=== PATIENT | female | born 1990 | race Caucasian/White ===

== ENCOUNTER → 2016-10-20 | Outpatient (CLI) | payer OTHER ==
--- NOTE | 2016-10-20 23:26 | REP ---
Clinical: Anatomical evaluation. Comparison: None . Findings: Examination demonstrates a single live intrauterine in breech presentation. motion is identified by technologist. Placenta is noted anteriorly and grade zero without evidence for placenta previa or abruption. Amniotic fluid volume is normal. Cervix measures 4.2 cm in length and appears closed. No evidence for nuchal cord. Gestational age by current measurements 20 weeks 0 days with OSVALDO 03/09/2017 . FHR equals 126 beats per minute. BPD 4.7 20 weeks 1 day HC 17.5 20 weeks 0 days AC 15.4 20 weeks 4 days FL 3.2 22 weeks 0 days HL 3.3 21 weeks 2 days HC/AC ratio 1.14 Estimated weight 345 grams ( 60th percentile). Anatomical assessment demonstrates normal structures including cranium, choroid plexus, cavum, cerebellum/posterior fossa, facial features, lungs, four-chamber heart/ventricular outflow tracts, diaphragm, stomach, cord insertion/three-vessel cord, kidneys/bladder, spine, and extremities. Impression: Single live intrauterine in breech presentation demonstrating normal complete anatomical assessment. Signed by Darren Licea MD 10/20/2016 11:18 P
== END ==
LOC: M SMT 12:58
PROVIDERS: ATTEND Obstetrics & Gynecology
DX: Z34.82 Encounter for supervision of other normal pregnancy, second trimester (principal)

== ENCOUNTER → 2016-12-16 | Outpatient (CLI) | payer OTHER ==
[2016-12-16 17:21] LABS: BASO % 0.1 % (0.0-1.0); EOS # 0.1 K/mm3 (0.0-0.50); EOS % 0.8 % (0.0-3.0); LARGE UNSTAINED CELL # 0.1 K/mm3 (0.0-0.4); LARGE UNSTAINED CELL % 1.1 % (0.0-4.0); LYMPH # 1.5 K/mm3 (1.5-6.5); LYMPH % 12.7 % (24.0-44.0); MEAN CORPUSCULAR HEMOGLOBIN 29.9 pg (27.0-33.0); MEAN CORPUSCULAR HGB CONC 33.3 g/dl (32.0-36.5); MEAN CORPUSCULAR VOLUME 89.7 fl (80.0-96.0); MONO # 0.5 K/mm3 (0.0-0.8); MONO % 4.7 % (0.0-5.0); NEUTROPHILS # 8.9 K/mm3 (1.8-7.7); NEUTROPHILS % 80.7 % (36.0-66.0); PLATELET COUNT, AUTOMATED 239 k/mm3 (150-450); RED CELL DISTRIBUTION WIDTH 13.3 % (11.5-14.5); WHITE BLOOD COUNT 11.1 K/mm3 (4.0-10.0)
== END ==
LOC: M SMT 14:10
PROVIDERS: ATTEND Specialist
DX: Z36 Encounter for antenatal screening of mother (principal); Z3A.00 Weeks of gestation of pregnancy not specified

== ENCOUNTER → 2017-02-09 | Outpatient (REF) | payer OTHER | LOC: M LAB REF 13:06 | PROVIDERS: ATTEND Advanced Practice Midwife | DX: Z36 Encounter for antenatal screening of mother (principal); Z3A.00 Weeks of gestation of pregnancy not specified ==

== ENCOUNTER 2017-03-05 12:45 | Inpatient (IN) | payer OTHER ==
[2017-03-05 13:05] VITALS: BP 132/75
[2017-03-05] MEDS ORDERED: LACTATED RINGER'S 1000 ML IV STA (13:18)
[2017-03-05] MEDS ORDERED: OXYTOCIN 30 UNITS IN 0.9% NaCl 500ML IV BAG (J2590) As Ordered ONE ×2 (13:34→16:19)
[2017-03-05 13:46] LABS: MEAN CORPUSCULAR HEMOGLOBIN 27.2 pg (27.0-33.0); MEAN CORPUSCULAR HGB CONC 33.5 g/dl (32.0-36.5); MEAN CORPUSCULAR VOLUME 81.1 fl (80.0-96.0); RED CELL DISTRIBUTION WIDTH 14.3 % (11.5-14.5); WHITE BLOOD COUNT 20.5 K/mm3 (4.0-10.0)
--- NOTE | 2017-03-05 13:51 | HPE ---
DATE OF ADMISSION: 03/05/2017 Ngoc is a 27-year-old 1, para 0 at 38 and 5/7 weeks gestation with an EDC of 03/14/2017 based on last normal period and confirmed by first trimester ultrasound. She presents to labor and delivery today with report of onset of uncomfortable contractions at approximately 0700 followed by a spontaneous rupture of membranes for a moderate amount of clear fluid at 0900. She does report positive bloody show and continued leaking. Her fetus has been active. The contractions are now extremely uncomfortable and difficult to cope with. She initiated her care at [facility] in the second trimester. Her care has been complicated by a history of vesicoureteral reflux as a child and she is status post revision via Pfannenstiel incision. OBSTETRICAL HISTORY: [facility] LABS: Her blood type is A+, antibody screen negative. Rubella immune. VDRL nonreactive. Urine culture no growth. Hepatitis B surface antigen negative. HIV negative. Hepatitis C antibody negative. Gonorrhea and chlamydia negative. Gestational diabetic screening 94 and GBS is negative. PAST MEDICAL HISTORY: Vesicoureteral reflux in, Childhood varicella. SURGERIES: Ureteral reimplantation for vesical reflux via Pfannenstiel incision. FAMILY HISTORY: Asthma. SOCIAL HISTORY: The patient is . The is at bedside and supportive. She is a nonsmoker. Denies alcohol and drug use. Denies history of STDs. Denies history of abuse physical, sexual and emotional. ALLERGIES: No known drug allergies. CURRENT MEDICATIONS: vitamin. OBJECTIVE: Pulse 71, blood pressure 132/75. She is whimpering and tensing with her contractions. She is alert and oriented times three. heart rate is 110 with moderate variability, positive excels no decelerations observed. She is sandro about every 2-4 minutes. Her sterile vaginal exam: 7-8 cm dilated, 90% effaced, 0 station, positive bloody show clear fluid noted. Abdomen is gravid, cephalic presentation. Estimated weight 7 pounds. ASSESSMENT: Intrauterine at 38-5/7 weeks. heart rate category I, active labor. PLAN: Admit the patient to labor and delivery. Out of bed ad remy. Saline lock and labs as ordered. Regular diet. She desires to cope with her labor physiologically, declines epidural. I do anticipate continued labor progress and a spontaneous vaginal delivery. MTDD
[2017-03-05] MEDS ORDERED: ceFAZolin 2 GM/D5W 50 ML IV BAG (J0690) As Ordered ONE (14:13)
[2017-03-05] MEDS ORDERED: BICITRA 30ML SOLN UDC As Ordered ONE (14:14)
[2017-03-05] MEDS ORDERED: MORPHINE PRES-FREE INJ 10 MG/10 ML VIAL (J2274) As Ordered ONE (14:23)
[2017-03-05] MEDS ORDERED: NALBUPHINE HCL 10 MG/ML AMP (J2300) IV PRN ×2 (14:29→15:45)
[2017-03-05] MEDS ORDERED: NALOXONE INJ 0.4 MG/1 ML VIAL (J2310) IV PRN ×2 (14:29)
[2017-03-05] MEDS ORDERED: ONDANSETRON 4MG/2ML VIAL (J2405) IV PRN ×3 (14:29→15:45)
[2017-03-05] MEDS ORDERED: METOCLOPRAMIDE INJ 10MG/2ML VIAL (J2765) IV PRN (14:29)
[2017-03-05] MEDS ORDERED: MIDAZOLAM INJ 2 MG/2 ML VIAL (J2250) As Ordered ONE (14:33)
[2017-03-05 14:44] LABS: CORD GAS ABE A -3.2; CORD GAS HCO3 A 23.3 MEQ/L; CORD GAS O2 SAT A 48.1 %; CORD GAS PCO2 A 46.7 mmHg; CORD GAS PH A 7.315 UNITS; CORD GAS PO2 A 21.5 mmHg; CORD GAS SBC A 20.5 MEQ/L; CORD GAS TCO2 A 24.7 MEQ/L
[2017-03-05] MEDS ORDERED: dexameTHASONE 4 MG/ML 1ML VIAL (J1100) As Ordered ONE (14:45)
[2017-03-05 14:46] LABS: CORD GAS ABE V -3.6; CORD GAS HCO3 V 21.6 MEQ/L; CORD GAS O2 SAT V 57.7 %; CORD GAS PCO2 V 39.8 mmHg; CORD GAS PH V 7.352 UNITS; CORD GAS PO2 V 25.2 mmHg; CORD GAS SBC V 20.4 MEQ/L; CORD GAS TCO2 V 22.8 MEQ/L
[2017-03-05] MEDS ORDERED: PHENYLephrine HCL 500 MCG/5 ML (100MCG/ML) SYRINGE (J2370) As Ordered ONE ×2 (14:54→14:56)
[2017-03-05] MEDS ORDERED: PERCOCET 5MG/325MG TAB PO PRN ×3 (15:30→15:45)
[2017-03-05] MEDS ORDERED: RHOGAM 300 MCG (1500 IU) INJ (J2790) IM SCH (15:30)
[2017-03-05] MEDS ORDERED: PROMETHAZINE 25 MG TAB PO PRN (15:30)
[2017-03-05] MEDS ORDERED: MEASLES,MUMPS,RUBELLA VACCINE INJ (MMR-II) (90707) SC SCH (15:30)
[2017-03-05] MEDS ORDERED: KETOROLAC 30 MG/ML VIAL (J1885) IV PRN (15:45)
[2017-03-05] MEDS ORDERED: fentaNYL 100 MCG/2 ML INJECTION (J3010) IV PRN (15:45)
[2017-03-05] MEDS ORDERED: OXYTOCIN DRIP 30 UNITS in APPROPRIATE DILUENT 1 EA IV SCH (16:45)
[2017-03-05 17:10] VITALS: BP 111/60
[2017-03-05 17:45] VITALS: BP 105/56
[2017-03-05] MEDS: LR 1,000 ML IV SCH ×2 (17:57→21:13)
[2017-03-05 18:45] VITALS: BP 122/69
[2017-03-05 19:45] VITALS: BP 121/69
[2017-03-05] MEDS: DOCUSATE SODIUM 100 MG CAP PO SCH (21:00)
[2017-03-05] MEDS: KETOROLAC 30 MG/ML VIAL (J1885) IV SCH (21:13)
[2017-03-05 22:00] VITALS: BP 127/58
[2017-03-06 02:12] VITALS: BP 109/58
[2017-03-06] MEDS: KETOROLAC 30 MG/ML VIAL (J1885) IV SCH ×3 (04:38→16:01)
[2017-03-06] MEDS: LR 1,000 ML IV SCH (04:59)
[2017-03-06 06:50] VITALS: BP 120/70
[2017-03-06 07:06] LABS: MEAN CORPUSCULAR HEMOGLOBIN 27.4 pg (27.0-33.0); MEAN CORPUSCULAR HGB CONC 33.4 g/dl (32.0-36.5); MEAN CORPUSCULAR VOLUME 82.1 fl (80.0-96.0); RED CELL DISTRIBUTION WIDTH 14.2 % (11.5-14.5); WHITE BLOOD COUNT 16.4 K/mm3 (4.0-10.0)
[2017-03-06] MEDS: DOCUSATE SODIUM 100 MG CAP PO SCH ×2 (07:56→20:45)
[2017-03-06] MEDS: PRENATAL VITAMIN TAB PO SCH (07:56)
[2017-03-06 10:30] VITALS: BP 115/58
[2017-03-06 14:00] VITALS: BP 113/60
[2017-03-06 18:00] VITALS: BP 110/61
[2017-03-06 22:19] VITALS: BP 111/69
[2017-03-07] MEDS: IBUPROFEN 800 MG TAB PO SCH ×2 (00:24→08:41)
[2017-03-07 06:21] VITALS: BP 115/78
[2017-03-07] MEDS ORDERED: OXYC1TAB23 PO ×2 (08:01→19:57)
[2017-03-07] MEDS ORDERED: IBUP600T26 PO (08:02)
[2017-03-07] MEDS ORDERED: COLA100C3 PO (08:03)
[2017-03-07] MEDS: DOCUSATE SODIUM 100 MG CAP PO SCH (08:42)
[2017-03-07] MEDS: PRENATAL VITAMIN TAB PO SCH (08:43)
[2017-03-07] MEDS ORDERED: IBUP-1114 PO (09:22)
== END 2017-03-07 15:15 | disposition home or self-care (01) | DRG 540 ==
LOC: M LDO 12:45 → M LDI 13:13 → M OBS 17:10
PROVIDERS: ADMIT Advanced Practice Midwife; ATTEND Advanced Practice Midwife
PROC: 10D00Z1 Extraction of Products of Conception, Low, Open Approach (ICD-10-PCS; principal; 2017-03-05 14:24)
DX: O76 Abnormality in fetal heart rate and rhythm complicating labor and delivery (principal); O64.0XX0 Obstructed labor due to incomplete rotation of fetal head, not applicable or unspecified; Z37.0 Single live birth; Z3A.38 38 weeks gestation of pregnancy; Z79.899 Other long term (current) drug therapy

== ENCOUNTER → 2025-07-17 | Outpatient (CLI) | payer OTHER ==
[~2025-07-17] MED LIST: COLA100C5 PO; IBUP-1114 PO; IBUP600T42 PO; OXYC1TAB23 PO
== END ==
LOC: M WHC 08:33
PROVIDERS: ATTEND Physician Assistant Medical
DX: R92.8 Other abnormal and inconclusive findings on diagnostic imaging of breast (principal)